=== PATIENT | female | born 1945 | race Hispanic/Latino ===

== ENCOUNTER 2017-12-06 09:05 | Emergency (ER) | payer MEDICARE, OTHER ==
[~2017-12-06] VITALS: Ht 165.1 cm; Wt 86.2 kg
[~2017-12-06 09:05] MED LIST: ALPRAZOLAM0.5 MG PO; BENICAR HCT 201 EACH PO; PANTOPRAZOLE SO40 MG PO; PYLERA CAPSULE1 EACH PO; Z.0.BENICAR40 MG PO; Z.0.XANAX1 MG PO
--- OUTSIDE RECORDS SUMMARY | 2017-12-06 09:09 | XMS REPORT | Clinical Summary ---
Author Author [facility] Organization [facility] Address Unknown Phone Unavailable Care Team Providers Care Procurement Intern Name Role Phone Konstantin Ritchie MD PCP Allergies Active Allergy Reactions Severity Noted Date Comments Codeine 05/16/2017 Iodinated Contrast- Oral 05/16/2017 And Iv Dye Morphine 05/16/2017 Penicillins 05/16/2017 Current Medications Prescription Sig. Disp. Refills Start End Date Status Date metoprolol succinate XL TK ONE T PO QD 2 03/07/20 Active (TOPROL-XL) 25 mg 24 hr 17 tablet amLODIPine (NORVASC) 5 mg TK 1 T PO QD 0 05/08/20 Active tablet 17 ALPRAZolam (XANAX) 0.5 MG TK 1 T PO QHS 0 05/08/20 Active tablet 17 BENICAR 20 mg tablet TK 1 T PO QD 0 03/28/20 Active 17 pantoprazole (PROTONIX) Take 1 tablet (40 mg 30 tablet 3 05/24/20 Active 40 MG EC tablet total) by mouth daily. 17 18 sodium,potassium,mag Take 1 Bottle by mouth 1 Bottle 0 05/16/20 sulfates (SUPREP BOWEL once for 1 dose. 17 17 PREP KIT) 17.5-3.13-1.6 gram recon soln pantoprazole (PROTONIX) Take 1 tablet (40 mg 30 tablet 11 05/22/20 05/24/20 Discontin 40 MG EC tablet total) by mouth daily. 17 17 ued Active Problems Not on file Encounters Date Type Specialty Care Team Description 10/01/2017 Abstract Cardiothoracic Surgery Yonas Enrique MD 05/24/2017 Telephone Gastroenterology Rosanna Berrios MA 05/22/2017 Lab Lab Holland Tavarez MD 05/22/2017 Orders Only Gastroenterology Holland Tavarez MD 05/16/2017 Office Visit Gastroenterology Holland Tavarez MD Gastroesophageal reflux disease, esophagitis presence not specified (Primary Dx);Colon cancer screening after 12/05/2016 Social History Tobacco Use Types Packs/Day Years Used Date Current Every Day Smoker Alcohol Use Drinks/Week oz/Week Comments Defer Sex Assigned at Date Recorded Not on file Last Filed Vital Signs Vital Sign Reading Time Taken Blood Pressure 138/76 05/16/2017 1:14 PM CDT Pulse 71 05/16/2017 1:14 PM CDT Temperature - - Respiratory Rate - - Oxygen Saturation - - Inhaled Oxygen - - Concentration Weight 92.1 kg (203 lb) 05/16/2017 1:14 PM CDT Height 165.1 cm (5' 5") 05/16/2017 1:14 PM CDT Body Mass Index 33.78 05/16/2017 1:14 PM CDT Plan of Treatment Date Type Specialty Care Team Description 12/09/2017 Office Visit Gastroenterology Holland Tavarez MD [address] [place] [address] [phone] Health Maintenance Due Date Last Done Comments COLONOSCOPY 1997 MAMMOGRAM 1997 ZOSTER VACCINE 2007 PNEUMOCOCCAL 2012 POLYSACCHARIDE VACCINE AGE 65 AND OVER PNEUMOCOCCAL-13 2012 INFLUENZA VACCINE 06/04/2017 Results * Surgical pathology request (05/22/2017 11:08 AM) Component Value Ref Range Surgical pathology report See link below for PDF Lab Report Specimen Performing Laboratory [facility] DEPARTMENT OF PATHOLOGY AND GENOMIC MEDICINE [address] [place] [id number] after 12/05/2016 Insurance Payer Benefit Subscriber ID Type Phone Address Plan / Group MEDICARE MEDICARE [id number] Medicare [place], [place] PART A AND B [employer] [place] [place] [place] [id number] [place] [address]
[2017-12-06] MEDS ORDERED: IBUPROFEN 600 MG TAB PO STA (09:33)
[2017-12-06 09:47] LABS: BASOPHILS # (AUTO) 0.1 (0.0-0.1); BASOPHILS % 1.1 % (0.0-1.0); EOSINOPHILS # (AUTO) 0.1 (0.0-0.4); EOSINOPHILS % 2.1 % (0.0-6.0); HEMATOCRIT 41.6 % (34.2-44.1); HEMOGLOBIN 13.7 g/dL (12.0-16.0); LYMPHOCYTES # (AUTO) 1.7 (1.0-3.2); LYMPHOCYTES % 27.5 % (18.0-39.1); MEAN CORPUSCULAR HEMOGLOBIN 29.7 pg (28-32); MEAN CORPUSCULAR HGB CONC 32.9 g/dL (31-35); MEAN CORPUSCULAR VOLUME 90.2 fL (81-99); MONOCYTES # (AUTO) 0.6 (0.2-0.8); MONOCYTES % 8.7 % (4.4-11.3); NEUTROPHILS # (AUTO) 3.8 (2.1-6.9); NEUTROPHILS % 60.3 % (38.7-80.0); PLATELET COUNT 183 x10e3/uL (140-360); RED BLOOD COUNT 4.61 x10e6/uL (3.6-5.1); RED CELL DISTRIBUTION WIDTH 13.6 % (11.7-14.4)
[2017-12-06 09:58] LABS: INR 0.95; PROTHROMBIN TIME 13.1 seconds (11.9-14.5)
[2017-12-06 09:59] LABS: PARTIAL THROMBOPLASTIN TIME 31.5 seconds (23.8-35.5)
[2017-12-06 10:04] LABS: ALANINE AMINOTRANSFERASE 60 IU/L (0-55); ALBUMIN 3.9 g/dL (3.5-5.0); ALBUMIN/GLOBULIN RATIO 0.8 (0.8-2.0); ALKALINE PHOSPHATASE 85 IU/L (40-150); ANION GAP 12.7 mmol/L (8-16); BLOOD UREA NITROGEN 14 mg/dL (7-26); BUN/CREATININE RATIO 16 (6-25); CALCIUM 9.5 mg/dL (8.4-10.2); CARBON DIOXIDE 26 mmol/L (22-29); CHLORIDE 102 mmol/L (98-107); CREATINE KINASE 108 IU/L (29-168); CREATININE, SERUM 0.88 mg/dL (0.57-1.11); EST GLOMERULAR FILTRATION RATE > 60 ML/MIN (60-); GLUCOSE 135 mg/dL (74-118); POTASSIUM 3.7 mmol/L (3.5-5.1); SODIUM 137 mmol/L (136-145)
[2017-12-06 10:10] LABS: TROPONIN I < 0.001 ng/mL (0-0.300)
--- NOTE | 2017-12-06 10:31 | Diagnostic Imaging Report ---
PROCEDURE: A single AP view of the chest. COMPARISON: Chest portable 10/07/2013. INDICATIONS: CHEST PAIN FINDINGS: Lines/tubes: None. Lungs: The lungs are well inflated and clear. There is no evidence of pneumonia or pulmonary edema. Pleura: There is no pleural effusion or pneumothorax. Heart and mediastinum: The heart and the mediastinum are unremarkable. Atherosclerotic calcifications. Bones: No acute bony abnormality. Degenerative changes of the thoracic spine. IMPRESSION: No acute radiographic abnormality. Dictated by: Carmine King M.D. on 12/06/2017 at 10:40 Electronically approved by: Carmine King M.D. on 12/06/2017 at 10:40
[2017-12-06 11:17] VITALS: BP 127/72
== END 2017-12-06 11:33 | disposition home or self-care (01) ==
LOC: ER 09:05
DX: R07.89 Other chest pain (principal); I10 Essential (primary) hypertension; K21.9 Gastro-esophageal reflux disease without esophagitis
CPT/HCPCS: 36415; 71045; 80053; 82550; 82553; 84484; 85025; 85610; 85730; 93005; 99284

== ENCOUNTER 2018-05-26 05:33 | Emergency (ER) | payer MEDICARE, OTHER ==
[~2018-05-26] VITALS: Ht 165.1 cm; Wt 86.2 kg
[2018-05-26] MEDS ORDERED: ALBUTEROL SULF 0.083% NEB SOLN 3 ML NEB NEB STA (05:57)
[2018-05-26] MEDS ORDERED: PREDNISONE 20 MG TAB PO STA (05:57)
[2018-05-26] MEDS ORDERED: IPRATROPIUM BROMIDE 0.02% 2.5 ML NEB NEB STA (05:57)
[2018-05-26] MEDS ORDERED: ASPIRIN 81 MG CHEW TAB PO ONE (06:00)
[2018-05-26] MEDS ORDERED: ACETAMINOPHEN/CODEINE 300MG - 30MG TAB PO ONE (06:00)
[2018-05-26 06:28] LABS: BASOPHILS # (AUTO) 0.1 (0.0-0.1); BASOPHILS % 1.3 % (0.0-1.0); EOSINOPHILS # (AUTO) 0.1 (0.0-0.4); EOSINOPHILS % 2.5 % (0.0-6.0); HEMATOCRIT 37.8 % (34.2-44.1); HEMOGLOBIN 12.9 g/dL (12.0-16.0); LYMPHOCYTES # (AUTO) 1.6 (1.0-3.2); LYMPHOCYTES % 29.3 % (18.0-39.1); MEAN CORPUSCULAR HEMOGLOBIN 30.2 pg (28-32); MEAN CORPUSCULAR HGB CONC 34.1 g/dL (31-35); MEAN CORPUSCULAR VOLUME 88.5 fL (81-99); MONOCYTES # (AUTO) 0.4 (0.2-0.8); MONOCYTES % 7.1 % (4.4-11.3); NEUTROPHILS # (AUTO) 3.3 (2.1-6.9); NEUTROPHILS % 59.6 % (38.7-80.0); PLATELET COUNT 162 x10e3/uL (140-360); RED BLOOD COUNT 4.27 x10e6/uL (3.6-5.1); RED CELL DISTRIBUTION WIDTH 13.6 % (11.7-14.4)
[2018-05-26 06:47] LABS: CLARITY,URINE CLEAR (CLEAR); COLOR,URINE YELLOW (YELLOW)
[2018-05-26 06:48] LABS: BILIRUBIN,URINE NEGATIVE (NEGATIVE); KETONES,URINE NEGATIVE (NEGATIVE); LEUKOCYTE ESTERASE ,URINE NEGATIVE (NEGATIVE); NITRITE,URINE NEGATIVE (NEGATIVE); PROTEIN,URINE DIPSTICK NEGATIVE (NEGATIVE); URINE UROBILINOGEN 0.2 mg/dL (0.2 - 1)
[2018-05-26 06:50] LABS: ALANINE AMINOTRANSFERASE 56 IU/L (0-55); ALBUMIN 3.6 g/dL (3.5-5.0); ALBUMIN/GLOBULIN RATIO 0.9 (0.8-2.0); ALKALINE PHOSPHATASE 76 IU/L (40-150); ANION GAP 12.2 mmol/L (8-16); BLOOD UREA NITROGEN 14 mg/dL (7-26); BUN/CREATININE RATIO 16 (6-25); CALCIUM 9.2 mg/dL (8.4-10.2); CARBON DIOXIDE 25 mmol/L (22-29); CHLORIDE 104 mmol/L (98-107); CREATINE KINASE 100 IU/L (29-168); CREATININE, SERUM 0.86 mg/dL (0.57-1.11); EST GLOMERULAR FILTRATION RATE > 60 ML/MIN (60-); GLUCOSE 159 mg/dL (74-118); POTASSIUM 4.2 mmol/L (3.5-5.1); SODIUM 137 mmol/L (136-145)
[2018-05-26] MEDS ORDERED: TYLENOL WITH C1 EACH PO (06:56)
[2018-05-26] MEDS ORDERED: PREDNISONE20 MG PO (06:56)
[2018-05-26] MEDS ORDERED: ZITHROMAX250 MG PO (06:58)
[2018-05-26 07:00] LABS: WBC,URINE (MAN) 0-5 /HPF (0-5)
[2018-05-26 07:01] LABS: BACTERIA,URINE MODERATE /HPF; EPITHELIAL CELLS,URINE MODERATE /LPF
--- NOTE | 2018-05-26 07:04 | Diagnostic Imaging Report ---
EXAMINATION: CHEST SINGLE (PORTABLE) INDICATION: Chest pain, fever COMPARISON: 12/06/2017 FINDINGS: TUBES and LINES: None. LUNGS: Lungs are not well inflated. Lungs are clear. There is mild prominence of the central pulmonary vasculature, consistent with pulmonary venous congestion. PLEURA: No pleural effusion or pneumothorax. HEART AND MEDIASTINUM: Cardiac size is mildly enlarged. There are atherosclerotic calcifications within the aorta. BONES AND SOFT TISSUES: No acute osseous lesion. Soft tissues are unremarkable. UPPER ABDOMEN: No free air under the diaphragm. IMPRESSION: No acute thoracic abnormality. Mild enlargement of the cardiac silhouette without decompensation. Signed by: Dr. Curtis Bower M.D. on 05/26/2018 7:01 AM
[2018-05-26] MEDS ORDERED: ACETAMINOPHEN 325 MG TAB PO ONE (07:15)
[2018-05-26] MEDS ORDERED: AZITHROMYCIN 250 MG TAB PO ONE (07:15)
[2018-05-26 07:17] VITALS: BP 147/96
[2018-05-26] MEDS ORDERED: ACETAMINOPHEN 325 MG TAB ONE (07:32)
[2018-05-26] MEDS ORDERED: AZITHROMYCIN 250 MG TAB ONE (07:32)
== END 2018-05-26 07:44 | disposition home or self-care (01) ==
LOC: ER 05:33
DX: R50.9 Fever, unspecified (principal); R05 Cough; R07.89 Other chest pain; J44.1 Chronic obstructive pulmonary disease with (acute) exacerbation; F17.210 Nicotine dependence, cigarettes, uncomplicated
CPT/HCPCS: 36415; 71045; 80053; 81001; 82550; 82553; 83880; 84484; 85025; 93005; 94640; 99284

== ENCOUNTER 2018-12-28 09:22 | Emergency (ER) | payer MEDICARE, OTHER ==
[~2018-12-28] VITALS: Ht 165.1 cm; Wt 86.2 kg
[~2018-12-28 09:22] MED LIST changes: +PREDNISONE20 MG PO; +TYLENOL WITH C1 EACH PO; +ZITHROMAX250 MG PO
--- OUTSIDE RECORDS SUMMARY | 2018-12-28 09:25 | XMS REPORT | Clinical Summary ---
Author Author [facility] Organization [facility] Address Unknown Phone Unavailable Care Team Providers Care Railroad Track Mechanic Name Role Phone Sedrick Ritchie MD PCP Allergies Comments Active Allergy Reactions Severity Noted Date Codeine 05/16/2017 Patient states she can tolerate oral iodine Iodinated Contrast- Oral 05/16/2017 And Iv Dye Morphine 05/16/2017 Penicillins 05/16/2017 Medications End Date Status Medication Sig Dispensed Refills Start Date Active metoprolol succinate XL TK ONE T PO 2 (TOPROL-XL) 25 mg 24 hr QD 7 tablet Active amLODIPine (NORVASC) 5 mg TK 1 T PO QD 0 tablet 7 Active ALPRAZolam (XANAX) 0.5 MG TK 1 T PO QHS 0 tablet 7 Active olmesartan-hydrochlorothi Take 1 tablet 0 azide (BENICAR HCT) 40-25 by mouth. mg per tablet Active lactobacillus comb no.10 Take by 0 (PROBIOTIC) 20 billion mouth. cell capsule Active PANCREAT/BETAINE/PEPSIN/B Take by 0 REGGIE (SUPER ENZYME ORAL) mouth. Active SYMBICORT 80-4.5 0 mcg/actuation inhaler 8 Active pantoprazole (PROTONIX) TAKE 1 90 tablet 0 40 MG EC tablet TABLET(40 MG) 9 BY MOUTH DAILY 01/21/2018 Discontinued BENICAR 20 mg tablet TK 1 T PO QD 0 7 05/24/2018 pantoprazole (PROTONIX) Take 1 tablet 30 tablet 3 40 MG EC tablet (40 mg total) 7 by mouth daily. 11/07/2018 Discontinued pantoprazole (PROTONIX) TAKE 1 30 tablet 0 40 MG EC tablet TABLET(40 MG) 9 BY MOUTH DAILY Active Problems Problem Noted Date Scoliosis due to degenerative disease of spine in adult patient 03/10/2018 Encounters Care Team Description Date Type Specialty Holland Tavarez MD 11/07/2018 Refill Gastroenterology Holland Tavarez MD 11/07/2018 Refill Gastroenterology Chito Prince MD Scoliosis of thoracolumbar spine, unspecified scoliosis type 03/12/2018 Hospital Radiology Encounter Chito Prince MD Scoliosis of thoracolumbar spine, unspecified scoliosis type 03/12/2018 Hospital Radiology Encounter Chito Prince MD Scoliosis of thoracolumbar spine, unspecified scoliosis type 03/12/2018 Hospital Radiology Encounter Chito Prince MD Scoliosis due to degenerative disease of spine in adult patient (Primary Dx) 03/05/2018 Office Visit Neurosurgery MoniqueAliza Ramírez MA Scoliosis of thoracolumbar spine, unspecified scoliosis type (Primary Dx) 03/05/2018 Transcribe Neurosurgery Orders Holland Tavarez MD 02/14/2018 Telephone Gastroenterology Yonas Enrique MD Hernia, hiatal (Primary Dx) 02/04/2018 Office Visit Cardiothoracic Surgery Yonas Enrique MD Abdominal pain, unspecified abdominal location 01/30/2018 Hospital Radiology Encounter Yonas Enrique MD Abdominal pain, unspecified abdominal location (Primary Dx) 01/22/2018 Transcribe Cardiothoracic Surgery Orders Yonas Enrique MD Weakness of both lower extremities (Primary Dx); Abdominal pain, unspecified abdominal location 01/21/2018 Office Visit Cardiothoracic Surgery Rosanna Berrios MA 01/01/2018 Telephone Gastroenterology Holland Tavarez MD 12/27/2017 Lab Lab after 12/27/2017 Social History Date Tobacco Use Types Packs/Day Years Used Current Every Day Smoker Smokeless Tobacco: Never Used Tobacco Cessation: Counseling Given: Yes Alcohol Use Drinks/Week oz/Week Comments Defer Sex Assigned at Date Recorded Not on file Industry Job Start Date Occupation Not on file Not on file Not on file Travel End Travel History Travel Start No recent travel history available. Last Filed Vital Signs Time Taken Vital Sign Reading 02/04/2018 9:25 AM CDT Blood Pressure 138/87 02/04/2018 9:25 AM CDT Pulse 68 02/04/2018 9:25 AM CDT Temperature 36.6 C (97.9 F) 02/04/2018 9:25 AM CDT Respiratory Rate 16 02/04/2018 9:25 AM CDT Oxygen Saturation 99% - Inhaled Oxygen - Concentration 03/03/2018 6:49 PM CDT Weight 90.3 kg (199 lb) 03/03/2018 6:49 PM CDT Height 165.1 cm (5' 5") 03/03/2018 6:49 PM CDT Body Mass Index 33.12 Plan of Treatment Health Maintenance Due Date Last Done Comments BREAST CANCER SCREENING 1997 COLON CANCER SCREENING 1997 SHINGLES VACCINES (#1) 1997 65+ PNEUMOCOCCAL VACCINE 2012 (1 of 2 - PCV13) PNEUMOCOCCAL 2012 POLYSACCHARIDE VACCINE AGE 65 AND OVER INFLUENZA VACCINE 06/04/2018 Procedures Comments Procedure Name Priority Date/Time Associated Diagnosis XR THORACIC SPINE Routine 03/12/2018 Scoliosis of COMPLETE 4+ VW 1:14 PM CDT thoracolumbar spine, unspecified scoliosis type XR LUMBAR SPINE AP Routine 03/12/2018 Scoliosis of LATERAL FLEXION AND 1:13 PM CDT thoracolumbar spine, EXTENSION unspecified scoliosis type XR SPINE SCOLIOSIS 2-3 Routine 03/12/2018 Scoliosis of VIEWS 1:13 PM CDT thoracolumbar spine, unspecified scoliosis type NM GASTRIC EMPTYING Routine 01/30/2018 Abdominal pain, 12:38 PM CDT unspecified abdominal location SURGICAL PATHOLOGY Routine 12/27/2017 REQUEST 10:41 AM HEAD PIECE ASSEMBLER after 12/27/2017 Results * XR Thoracic Spine Complete 4+ Vw (03/12/2018 1:14 PM CDT) Narrative Performed At EXAMINATION:XR THORACIC SPINE COMPLETE 4VW [facility] CLINICAL HISTORY:M41.9 Scoliosisunspecified, SCOLIOSIS COMPARISON:None. IMPRESSION: There is a scoliosis to the left centered at T11-12. There is generalized disc space narrowing throughout the thoracic spine most prominent at T8-9 through T12-L1. There is diminished bending towards the left lung compared to the right. There is no gross compression fracture. [facility]-[id number] Procedure Note Interface, Radiology Results Incoming - 03/12/2018 1:52 PM CDT EXAMINATION: XR THORACIC SPINE COMPLETE 4 VW CLINICAL HISTORY: M41.9 Scoliosis unspecified, SCOLIOSIS COMPARISON: None. IMPRESSION: There is a scoliosis to the left centered at T11-12. There is generalized disc space narrowing throughout the thoracic spine most prominent at T8-9 through T12-L1. There is diminished bending towards the left lung compared to the right. There is no gross compression fracture. [id number] Performing Organization Address City/State/Zipcode Phone Number [facility] [address] [place] [address] * XR Lumbar Spine Ap Lateral Flexion And Extension (03/12/2018 1:13 PM CDT) Narrative Performed At EXAMINATION: XR LUMBAR SPINE AP LATERALFLEXION AND EXTENSION [facility] CLINICAL H[facility]: M41.9 Scoliosisunspecified, SCOLIOSIS COMPARISON:None IMPRESSION: 6 radiographs of the lumbar spine are submitted. 5 nonrib-bearing lumbar-type vertebral bodies are identified. On the frontal projection, there is right convex curvature of the lower lumbar spine and left convex curvature of the upper lumbar and lower thoracic spine. The most caudal functional appearing disc space is designated L5-S1. There appears to be bony fusion of the L1-L4 vertebral bodies across the disc spaces. Bone density appears decreased. There is severe disc space narrowing at L4-L5, with sclerosis along the endplates. Multilevel spondylotic changes of the lumbar spine are noted, with prominent marginal osteophytes at L3-L4. No significant spondylolisthesis is identified on the neutral position. With flexion, there is induced spondylolisthesis at L4-L5, measuring approximately 8 mm. There is mild age-indeterminate anterior wedge compression deformity of the T12 vertebral body. Surgical clips are seen in the upper abdomen bilaterally. On the frontal radiographs, there is a cylindrical-shaped density projecting over the liver, which could represent a radiopaque pill. [id number] Procedure Note Interface, Radiology Results Incoming - 03/12/2018 1:50 PM CDT EXAMINATION: XR LUMBAR SPINE AP LATERAL FLEXION AND EXTENSION CLINICAL HISTORY: M41.9 Scoliosis unspecified, SCOLIOSIS COMPARISON: None IMPRESSION: 6 radiographs of the lumbar spine are submitted. 5 nonrib-bearing lumbar-type vertebral bodies are identified. On the frontal projection, there is right convex curvature of the lower lumbar spine and left convex curvature of the upper lumbar and lower thoracic spine. The most caudal functional appearing disc space is designated L5-S1. There appears to be bony fusion of the L1-L4 vertebral bodies across the disc spaces. Bone density appears decreased. There is severe disc space narrowing at L4-L5, with sclerosis along the endplates. Multilevel spondylotic changes of the lumbar spine are noted, with prominent marginal osteophytes at L3-L4. No significant spondylolisthesis is identified on the neutral position. With flexion, there is induced spondylolisthesis at L4-L5, measuring approximately 8 mm. There is mild age-indeterminate anterior wedge compression deformity of the T12 vertebral body. Surgical clips are seen in the upper abdomen bilaterally. On the frontal radiographs, there is a cylindrical-shaped density projecting over the liver, which could represent a radiopaque pill. [id number] Performing Organization Address City/State/Zipcode Phone Number [facility] [address] [place] [address] * XR Spine Scoliosos 2-3 Views (03/12/2018 1:13 PM CDT) Narrative Performed At EXAMINATION:XR SPINE SCOLIOSIS 2-3 VIEWS [facility] CLINICAL HISTORY:M41.9 Scoliosisunspecified, SCOLIOSIS COMPARISON:None. Frontal and lateral views of entire spine was performed. IMPRESSION: There is severe 45 degrees leftward curvature at T12. There is 0 coronal balance. The left femoral head is 5 mm more inferior than the right femoral head. Sagittal imaging shows diffuse multilevel spondylosis and diffuse osteopenia. There is grade 1 anterolisthesis of L4. There is slight exaggeration of thoracic kyphosis. There is 9.5 cm positive sagittal balance. Aorta is tortuous. Heart size is upper normal. Lungs are clear. Bowel gas pattern is nonobstructive. [facility]-[id number] Procedure Note Hm Interface, Radiology Results Incoming - 03/12/2018 4:33 PM CDT EXAMINATION: XR SPINE SCOLIOSIS 2-3 VIEWS CLINICAL HISTORY: M41.9 Scoliosis unspecified, SCOLIOSIS COMPARISON: None. Frontal and lateral views of entire spine was performed. IMPRESSION: There is severe 45 degrees leftward curvature at T12. There is 0 coronal balance. The left femoral head is 5 mm more inferior than the right femoral head. Sagittal imaging shows diffuse multilevel spondylosis and diffuse osteopenia. There is grade 1 anterolisthesis of L4. There is slight exaggeration of thoracic kyphosis. There is 9.5 cm positive sagittal balance. Aorta is tortuous. Heart size is upper normal. Lungs are clear. Bowel gas pattern is nonobstructive. [facility]-[id number] Performing Organization Address City/[facility] Phone Number [facility] [address] [place] [address] * NM Gastric Emptying (01/30/2018 12:38 PM CDT) Narrative Performed At PROCEDURE:NM GASTRIC EMPTYING [facility] INDICATION:Abdominal pain. TECHNIQUE: 0.5 mCi of Tc-99m sulfur colloid was mixed with an egg and cooked.The egg was fed to the patient and dynamic planar images of the abdomen were acquired for 90 minutes.Delayed images were obtained at 4 hours. FINDINGS:The 90 minute gastric emptying rate is normal.The half-time of emptying is 65 minutes.Normal range is between 45 and 100 minutes.4 hour images demonstrate complete gastric emptying. IMPRESSION: 1.Normal gastric emptying rate. [facility]-[id number] Procedure Note [facility], Radiology Results Incoming - 01/30/2018 2:41 PM CDT PROCEDURE: NM GASTRIC EMPTYING INDICATION: Abdominal pain. TECHNIQUE: 0.5 mCi of Tc-99m sulfur colloid was mixed with an egg and cooked. The egg was fed to the patient and dynamic planar images of the abdomen were acquired for 90 minutes. Delayed images were obtained at 4 hours. FINDINGS: The 90 minute gastric emptying rate is normal. The half-time of emptying is 65 minutes. Normal range is between 45 and 100 minutes. 4 hour images demonstrate complete gastric emptying. IMPRESSION: 1. Normal gastric emptying rate. [facility]-[id number] Performing Organization Address [facility] Phone Number [facility] [address] [place] [address] * Surgical pathology request (12/27/2017 10:41 AM HEAD PIECE ASSEMBLER) [facility] DEPARTMENT OF PATHOLOGY AND GENOMIC MEDICINE Surgical pathology report See link below for PDF Lab [facility] DEPARTMENT OF Report PATHOLOGY AND GENOMIC MEDICINE Result status This is Final Report to [facility] DEPARTMENT OF [id number] PATHOLOGY AND GENOMIC MEDICINE Performing Organization Address [facility] Cent[facility] Phone Number [facility] DEPARTMENT OF [address] [place] [id number] PATHOLOGY AND GENOMIC MEDICINE after 12/27/2017 Insurance Payer Benefit Subscriber ID Type Phone Address Plan / Group MEDICARE MEDICARE xxxxxxxxxx Medicare [place], [place] PART A AND B [employer] ANN [employer] OF xxxxxx-xx Commercial ANN Advance Directives Patient has advance care planning documents on file. For more information, sarkis lynch contact: Rivera Cade [address] [place] [address]
--- OUTSIDE RECORDS SUMMARY | 2018-12-28 09:26 | XMS REPORT ---
Author Author Fortino [facility]ie Organization [employer] Address Unknown Phone Unavailable Care Team Providers Care Resp Ther Name Role Phone Fortino Ritchie CP Unavailable Allergies No Known Allergies Problems Problem Type Condition Code Onset Dates Condition Status Problem Vitamin D deficiency, unspecified E55.9 Active Problem Declined smoking cessation Z72.0 Active Problem Age related osteoporosis M81.0 Active Problem Left knee pain M25.562 Active Problem Sciatica of left side M54.32 Active Problem Encounter for long-term (current) use of other medications Z79.899 Active Problem Lumbago with sciatica, unspecified side M54.40 Active Problem Polyarthralgia M25.50 Active Problem Low back pain M54.5 Active Problem Sciatica, right side M54.31 Active Medications No Known Medications Results No Known Results Summary Purpose [employer] Submission
--- OUTSIDE RECORDS SUMMARY | 2018-12-28 09:26 | XMS REPORT ---
Author Author Fortino Ritchie Organization [employer] Address Unknown Phone Unavailable Care Team Providers Care Machinist 2Nd Shift Name Role Phone Fortino Ritchie CP Unavailable [...]
--- OUTSIDE RECORDS SUMMARY | 2018-12-28 09:26 | XMS REPORT | Continuity of Care Document ---
Author Author [facility] Interface Address Unknown Phone Unavailable Problems Problem Status Onset Date Classification Date Reported Comments Source Vitamin D deficiency, unspecified Active Problem 07/24/2018 Haider Ritchie Declined smoking cessation Active Problem 07/24/2018 Haider Ritchie Age related osteoporosis Active Problem 07/24/2018 Ha[facility] Ritchie Left knee pain Active Problem 07/24/2018 [facility] Ritchie Sciatica of left side Active Problem 07/24/2018 Ha[facility] Ritchie Encounter for long-term use of other medications Active Problem 07/24/2018 [facility] Ritchie Lumbago with sciatica, unspecified side Active Problem 07/24/2018 Ha[facility] Ritchie Polyarthralgia Active Problem 07/24/2018 Ha[facility] Ritchie Low back pain Active Problem 07/24/2018 Ha[facility] Ritchie Sciatica, right side Active Problem 07/24/2018 Ha[facility] Ritchie Medications Medication Details Route Status Patient Instructions Ordering Provider Order Date Source Prolia as directed Subcutaneous Active 60 MG/ML Subcutaneous every 6 months Ritchie 07/14/2018 Ha[facility] Ritchie Acetaminophen With Codeine (Tylenol With Codeine #3 Tablet) 1 Each Tablet Every 6 Hours as needed for Cough Active Kei 05/26/2018 [facility] Azithromycin (Zithromax) 250 Mg Tablet Daily Active Kei 05/26/2018 [facility] Prednisone 20 Mg Tab Daily Active Kei 05/26/2018 [facility] Vitamin D (Ergocalciferol) 1 capsule Orally Active 11655 UNIT Orally once a week Ritchie 12/27/2016 [facility] Ritchie Alprazolam (Xanax) 1 Mg Tablet, 1 Mg Oral Bedtime Active 07/11/2016 [facility] Bismuth/Metronid/Tetracycline (Pylera Capsule) 1 Each Capsule, 3 Cap Oral Four Times Daily Active 07/11/2016 [facility] Pantoprazole Sodium (Protonix) 40 Mg Tablet.dr, 40 Mg Oral Twice A Day Active 07/11/2016 [facility] Olmesartan Medoxomil (Benicar) 40 Mg Tablet, 40 Mg Oral Daily Active 11/17/2013 [facility] Pantoprazole Sodium (Protonix) 40 Mg Tablet., 40 Mg Oral Daily Active 11/17/2013 [facility] Benicar 1 tablet Orally Active 20 MG Orally once a day [place] Haider Ritchie Alprazolam 1 tablet Orally Active 0.5 MG Orally once at night Ritchie Haider Ritchie Metoprolol Tartrate 1 tablet with food Orally Active 25 MG Orally Twice a day Erma Ritchie Prolia as directed Subcutaneous Active 60 MG/ML Subcutaneous every 6 months Erma Ritchie Vitamin D (Ergocalciferol) 1 capsule Orally Active 03759 UNIT Orally once a week Ritchie Haider Ritchie Fluoxetine 1 capsule Orally Active 20 MG Orally Once a day [place] Haider Ritchie Alprazolam 0.5 Mg Tablet Bedtime Active [facility] Olmesartan/Hydrochlorothiazide (Benicar Hct 20-12.5 Mg Tablet) 1 Each Tablet Daily Active [facility] Allergies, Adverse Reactions, Alerts Substance Category Reaction Severity Reaction type Status Date Reported Comments Source Penicillin Severe Allergy to Substance Active 11/17/2013 [facility] Morphine Intermediate Allergy to Substance Active 11/17/2013 [facility] Codeine Intermediate Allergy to Substance Active 11/17/2013 [facility] Iodinated Contrast- Oral and IV Dye Severe Allergy to Substance Active 12/06/2017 [facility] penicillin Adverse Reaction chest pain Adverse Reaction Active 07/14/2018 [facility] Ritchie Morphine Sulfate Adverse Reaction hallucinations Adverse Reaction Active 07/14/2018 Haider Ritchie Iodine Adverse Reaction coma Adverse Reaction Active 07/14/2018 [facility] Ritchie Codeine Sulfate Adverse Reaction hallucinations Adverse Reaction Active 07/14/2018 Ha[facility] Ritchie Immunizations Immunization Date Given Site Status Last Updated Comments Source Results Order Name Results Value Reference Range Date Interpretation Comments Source Automated urine sediment leukocyte count by microscopy (number/high power field) Automated urine sediment leukocyte count by microscopy (number/high power field) null 0 - 5 05/26/2018 [facility] Bacteria detection in urine sediment by light microscopy Bacteria detection in urine sediment by light microscopy MODERATE NONE 05/26/2018 [facility] Epithelial cells detection in urine sediment by light microscopy Epithelial cells detection in urine sediment by light microscopy MODERATE NONE 05/26/2018 [facility] Erythrocytes detection in urine sediment by light microscopy Erythrocytes detection in urine sediment by light microscopy NONE 0 - 5 05/26/2018 [facility] Specific gravity of Urine by Test strip Specific gravity of Urine by Test strip 1.015 1.010 - 1.025 05/26/2018 [facility] Urine clarity Urine clarity CLEAR CLEAR 05/26/2018 [facility] Urine color determination Urine color determination YELLOW YELLOW 05/26/2018 [facility] Urine erythrocytes detection Urine erythrocytes detection NEGATIVE NEGATIVE 05/26/2018 [facility] Urine glucose detection Urine glucose detection NEGATIVE NEGATIVE 05/26/2018 [facility] Urine ketones detection by automated test strip Urine ketones detection by automated test strip NEGATIVE NEGATIVE 05/26/2018 [facility] Urine leukocyte esterase detection by dipstick Urine leukocyte esterase detection by dipstick NEGATIVE NEGATIVE 05/26/2018 [facility] Urine nitrite detection Urine nitrite detection NEGATIVE NEGATIVE 05/26/2018 [facility] Urine pH measurement by automated test strip Urine pH measurement by automated test strip 8 5 - 7 05/26/2018 [facility] Urine protein measurement by test strip (mass/volume) Urine protein measurement by test strip (mass/volume) NEGATIVE NEGATIVE 05/26/2018 [facility] Urine total bilirubin measurement (mass/volume) Urine total bilirubin measurement (mass/volume) NEGATIVE NEGATIVE 05/26/2018 [facility] Urine urobilinogen measurement by test strip (mass/volume) Urine urobilinogen measurement by test strip (mass/volume) 0.2 0.2 - 1 05/26/2018 [facility] Automated blood basophil count (count/volume) Automated blood basophil count (count/volume) 0.1 0.0 - 0.1 05/26/2018 [facility] Automated blood basophil count as percentage of total leukocytes Automated blood basophil count as percentage of total leukocytes 1.3 0.0 - 1.0 05/26/2018 [facility] Automated blood eosinophil count Automated blood eosinophil count 0.1 0.0 - 0.4 05/26/2018 [facility] Automated blood eosinophil count as percentage of total leukocytes Automated blood eosinophil count as percentage of total leukocytes 2.5 0.0 - 6.0 05/26/2018 [facility] Automated blood hematocrit (volume fraction) Automated blood hematocrit (volume fraction) 37.8 34.2 - 44.1 05/26/2018 [facility] Automated blood lymphocyte count as percentage ot total leukocytes Automated blood lymphocyte count as percentage ot total leukocytes 29.3 18.0 - 39.1 05/26/2018 [facility] Automated blood monocyte count as percentage of total leukocytes Automated blood monocyte count as percentage of total leukocytes 7.1 4.4 - 11.3 05/26/2018 [facility] Automated blood neutrophil count Automated blood neutrophil count 3.3 2.1 - 6.9 05/26/2018 [facility] Automated blood platelet count (count/volume) Automated blood platelet count (count/volume) 162 140 - 360 05/26/2018 [facility] Automated blood segmented neutrophil count as percentage of total leukocytes Automated blood segmented neutrophil count as percentage of total leukocytes 59.6 38.7 - 80.0 05/26/2018 [facility] Automated erythrocyte mean corpuscular hemoglobin (mass per erythrocyte) Automated erythrocyte mean corpuscular hemoglobin (mass per erythrocyte) 30.2 28 - 32 05/26/2018 [facility] Automated erythrocyte mean corpuscular hemoglobin concentration measurement (mass/volume) Automated erythrocyte mean corpuscular hemoglobin concentration measurement (mass/volume) 34.1 31 - 35 05/26/2018 [facility] Automated erythrocyte mean corpuscular volume Automated erythrocyte mean corpuscular volume 88.5 81 - 99 05/26/2018 [facility] Blood erythrocytes automated count (number/volume) Blood erythrocytes automated count (number/volume) 4.27 3.6 - 5.1 05/26/2018 [facility] Blood hemoglobin measurement (moles/volume) Blood hemoglobin measurement (moles/volume) 12.9 12.0 - 16.0 05/26/2018 [facility] Blood leukocytes automated count (number/volume) Blood leukocytes automated count (number/volume) 5.50 4.8 - 10.8 05/26/2018 [facility] Blood lymphocytes count (number/volume) Blood lymphocytes count (number/volume) 1.6 1.0 - 3.2 05/26/2018 [facility] Blood monocytes automated count (number/volume) Blood monocytes automated count (number/volume) 0.4 0.2 - 0.8 05/26/2018 [facility] Estimated glomerular filtration rate (GFR) determination Estimated glomerular filtration rate (GFR) determination null 60 05/26/2018 [facility] Glucose measurement Glucose measurement 159 74 - 118 05/26/2018 [facility] Plasma globulin measurement (mass/volume) Plasma globulin measurement (mass/volume) 3.9 2.3 - 3.5 05/26/2018 [facility] Serum or plasma alanine aminotransferase measurement (enzymatic activity/volume) Serum or plasma alanine aminotransferase measurement (enzymatic activity/volume) 56 0 - 55 05/26/2018 [facility] Serum or plasma albumin measurement (mass/volume) Serum or plasma albumin measurement (mass/volume) 3.6 3.5 - 5.0 05/26/2018 [facility] Serum or plasma albumin/globulin mass ratio Serum or plasma albumin/globulin mass ratio 0.9 0.8 - 2.0 05/26/2018 [facility] Serum or plasma alkaline phosphatase measurement (enzymatic activity/volume) Serum or plasma alkaline phosphatase measurement (enzymatic activity/volume) 76 40 - 150 05/26/2018 [facility] Serum or plasma anion gap Serum or plasma anion gap 12.2 8 - 16 05/26/2018 [facility] Serum or plasma calcium measurement (mass/volume) Serum or plasma calcium measurement (mass/volume) 9.2 8.4 - 10.2 05/26/2018 [facility] Serum or plasma carbon dioxide, total measurement (moles/volume) Serum or plasma carbon dioxide, total measurement (moles/volume) 25 22 - 29 05/26/2018 [facility] Serum or plasma chloride measurement (moles/volume) Serum or plasma chloride measurement (moles/volume) 104 98 - 107 05/26/2018 [facility] Serum or plasma creatine kinase MB measurement (mass/volume) Serum or plasma creatine kinase MB measurement (mass/volume) 2.30 0 - 5.0 05/26/2018 [facility] Serum or plasma creatine kinase measurement (enzymatic activity/volume) Serum or plasma creatine kinase measurement (enzymatic activity/volume) 100 29 - 168 05/26/2018 [facility] Serum or plasma creatinine measurement (mass/volume) Serum or plasma creatinine measurement (mass/volume) 0.86 0.57 - 1.11 05/26/2018 [facility] Serum or plasma potassium measurement (moles/volume) Serum or plasma potassium measurement (moles/volume) 4.2 3.5 - 5.1 05/26/2018 [facility] Serum or plasma protein measurement (mass/volume) Serum or plasma protein measurement (mass/volume) 7.5 6.5 - 8.1 05/26/2018 [facility] Serum or plasma sodium measurement (moles/volume) Serum or plasma sodium measurement (moles/volume) 137 136 - 145 05/26/2018 [facility] Serum or plasma total bilirubin measurement (mass/volume) Serum or plasma total bilirubin measurement (mass/volume) 0.5 0.2 - 1.2 05/26/2018 [facility] Serum or plasma urea nitrogen measurement (mass/volume) Serum or plasma urea nitrogen measurement (mass/volume) 14 7 - 26 05/26/2018 [facility] Serum or plasma urea nitrogen/creatinine mass ratio Serum or plasma urea nitrogen/creatinine mass ratio 16 6 - 25 05/26/2018 [facility] Troponin I measurement by highly sensitive enzyme immunoassay Troponin I measurement by highly sensitive enzyme immunoassay 0.001 0 - 0.300 05/26/2018 [facility] Red Cell Distribution Width 13.6 11.7 - 14.4 05/26/2018 [facility] IM GRANULOCYTES % 0.2 0.0 - 1.0 05/26/2018 [facility] Absolute Immature Granulocyte (auto 0.01 0 - 0.1 05/26/2018 [facility] Aspartate Amino Transf (AST/SGOT) 62 5 - 34 05/26/2018 [facility] B-Type Natriuretic Peptide 41.7 0 - 100 05/26/2018 [facility] Activated partial thromboplastin time (aPTT) in platelet poor plasma bycoagulation assay Activated partial thromboplastin time (aPTT) in platelet poor plasma bycoagulation assay 31.5 23.8 - 35.5 12/06/2017 [facility] INR in Platelet poor plasma by Coagulation assay INR in Platelet poor plasma by Coagulation assay 0.95 12/06/2017 [facility] Prothrombin time (PT) in platelet poor plasma by coagulation assay Prothrombin time (PT) in platelet poor plasma by coagulation assay 13.1 11.9 - 14.5 12/06/2017 [facility] Vital Signs Vital Sign Value Date Comments Source Weight 200.3 07/14/2018 [facility] Ritchie Height 60 07/14/2018 [facility] Ritchie Temperature Oral (F) 98.4 F 07/14/2018 [facility] Ritchie Heart Rate 100 07/14/2018 [facility] Ritchie Diastolic (mm Hg) 72 07/14/2018 [facility] Ritchie Systolic (mm Hg) 150 07/14/2018 [facility] Rizoer Weight 199 01/10/2018 [facility] Rizoer Height 60 01/10/2018 [facility] Ritchie Temperature Oral (F) 97.9 F 01/10/2018 [facility] Ritchie Heart Rate 64 01/10/2018 [facility] Ritchie Diastolic (mm Hg) 70 01/10/2018 [facility] Ritchie Systolic (mm Hg) 122 01/10/2018 [facility] Ritchie Encounters Location Location Details Encounter Type Encounter Number Reason For Visit Attending Provider ADM Date DC Date Status Source Departed Emergency Room [id number] NENITA MENARD MD 12/06/2017 12/06/2017 [facility] Departed Emergency Room [id number] TOMÁS LEONARD MD 05/26/2018 05/26/2018 [facility] Procedures Procedure Code Date Perfomer Comments Source
--- OUTSIDE RECORDS SUMMARY | 2018-12-28 09:26 | XMS REPORT ---
Author Author Fortino Ritchie Organization [employer] Address Unknown Phone Unavailable Care Team Providers Care Provider Relations Advocate Name Role Phone Fortino Ritchie CP Unavailable [...]
--- OUTSIDE RECORDS SUMMARY | 2018-12-28 09:26 | XMS REPORT ---
Author Author Fortino Ritchie Organization [employer] Address Unknown Phone Unavailable Care Team Providers Care Programmer Numerical Control Name Role Phone Fortino Ritchie CP Unavailable Allergies, Adverse Reactions, Alerts Substance Reaction Event Type penicillin chest pain Drug Allergy Morphine Sulfate hallucinations Drug Allergy Iodine coma Drug Allergy Codeine Sulfate hallucinations Drug Allergy Problems Problem Type Condition Code Onset Dates [...] Active Problem Sciatica, right side M54.31 Active Assessment Encounter for long-term (current) use of other medications Z79.899 Active Assessment Low back pain M54.5 Active Assessment Age related osteoporosis M81.0 Active Medications Medication Code System Code Instructions Start Date End Date Status Dosage Prolia [facility] 48227313162 60 MG/ML Subcutaneous every 6 months Jul 14, 2018 Inactive as directed Alprazolam ND 06725462702 0.5 MG Orally once at night Active 1 tablet Vitamin D (Ergocalciferol) [facility] 87885844594 39767 UNIT Orally once a week Active 1 capsule Benicar ND 67527267559 20 MG Orally once a day Active 1 tablet Fluoxetine NDC 0 20 MG Orally Once a day Active 1 capsule Metoprolol Tartrate ND 83262858582 25 MG Orally Twice a day Active 1 tablet with food Vital Signs Date/Time: Jul 14, 2018 BMI 39.11 Index Weight 200.3 lbs Height 60 in Temperature 98.4 F Cardiac Monitoring Heart Rate 100 /min Blood Pressure Diastolic 72 mm Hg Blood Pressure Systolic 150 mm Hg Results No Known Results Summary Purpose [employer] Submission
--- OUTSIDE RECORDS SUMMARY | 2018-12-28 09:26 | XMS REPORT ---
Author Author Fortino Ritchie [facility] [employer] Address Unknown Phone Unavailable Care Team Providers Care Literacy Coordinator Name Role Phone Fortino Ritchie Unavailable Allergies, Adverse Reactions, Alerts Substance Reaction [...] Problem Sciatica, right side M54.31 Active Assessment Sciatica of left side M54.32 Active Assessment Left knee pain M25.562 Active Assessment Low back pain M54.5 Active Assessment Sciatica, right side M54.31 Active Assessment Declined smoking cessation Z72.0 Active Assessment Encounter for long-term (current) use of other medications Z79.899 Active Assessment Age related osteoporosis M81.0 Active Medications Medication Code System Code Instructions Start Date End Date Status Dosage Benicar ND 20069026400 20 MG Orally once a day Active 1 tablet Alprazolam ND 12350732418 0.5 MG Orally once at night Active 1 tablet Metoprolol Tartrate ND 81095095184 25 MG Orally Twice a day Active 1 tablet with food Prolia ND 47043015282 60 MG/ML Subcutaneous every 6 months Active as directed Vitamin D (Ergocalciferol) ND 80459023740 35608 UNIT Orally once a week Dec 27, 2016 Active 1 capsule Vital Signs Date/Time: January 10, 2018 BMI 38.86 Index Weight 199 lbs Height 60 in Temperature 97.9 F Cardiac Monitoring Heart Rate 64 /min Blood Pressure Diastolic 70 mm Hg Blood Pressure Systolic 122 mm Hg Results No Known Results Summary Purpose [employer] Submission
[2018-12-28] MEDS ORDERED: KETOROLAC TROMETHAMINE 30 MG/ML VIAL IV NR (10:00)
[2018-12-28 10:20] LABS: BASOPHILS # (AUTO) 0.1 (0.0-0.1); BASOPHILS % 1.2 % (0.0-1.0); EOSINOPHILS # (AUTO) 0.1 (0.0-0.4); EOSINOPHILS % 2.2 % (0.0-6.0); HEMATOCRIT 39.6 % (34.2-44.1); HEMOGLOBIN 13.6 g/dL (12.0-16.0); LYMPHOCYTES # (AUTO) 1.7 (1.0-3.2); LYMPHOCYTES % 27.6 % (18.0-39.1); MEAN CORPUSCULAR HEMOGLOBIN 29.8 pg (28-32); MEAN CORPUSCULAR HGB CONC 34.3 g/dL (31-35); MEAN CORPUSCULAR VOLUME 86.8 fL (81-99); MONOCYTES # (AUTO) 0.4 (0.2-0.8); MONOCYTES % 6.5 % (4.4-11.3); NEUTROPHILS # (AUTO) 3.8 (2.1-6.9); NEUTROPHILS % 62.3 % (38.7-80.0); PLATELET COUNT 163 x10e3/uL (140-360); RED BLOOD COUNT 4.56 x10e6/uL (3.6-5.1); RED CELL DISTRIBUTION WIDTH 13.6 % (11.7-14.4)
[2018-12-28 10:30] LABS: INR 0.95; PROTHROMBIN TIME 13.6 seconds (11.9-14.5)
[2018-12-28 10:31] LABS: PARTIAL THROMBOPLASTIN TIME 35.5 seconds (23.8-35.5)
[2018-12-28 10:39] LABS: ANION GAP 13.8 mmol/L (8-16); CALCIUM 9.6 mg/dL (8.4-10.2); CREATININE, SERUM 0.93 mg/dL (0.57-1.11); POTASSIUM 3.8 mmol/L (3.5-5.1)
[2018-12-28 10:46] LABS: CREATINE KINASE MB 1.7 ng/mL (0-5.0)
[2018-12-28 11:12] LABS: BACTERIA,URINE MANY /HPF; BILIRUBIN,URINE NEGATIVE (NEGATIVE); CLARITY,URINE HAZY (CLEAR); COLOR,URINE YELLOW (YELLOW); KETONES,URINE NEGATIVE (NEGATIVE); LEUKOCYTE ESTERASE ,URINE TRACE (NEGATIVE); NITRITE,URINE NEGATIVE (NEGATIVE); PROTEIN,URINE DIPSTICK NEGATIVE (NEGATIVE); URINE UROBILINOGEN 0.2 mg/dL (0.2 - 1); WBC,URINE (MAN) 0-5 /HPF (0-5)
[2018-12-28 11:13] LABS: EPITHELIAL CELLS,URINE MODERATE /LPF
[2018-12-28 11:54] VITALS: BP 142/70
--- NOTE | 2018-12-28 12:21 | Diagnostic Imaging Report ---
EXAMINATION: CHEST 2 VIEWS INDICATION: Chest pain. COMPARISON: Chest radiograph 05/26/2018. FINDINGS: Exam is somewhat limited by patient rotation. TUBES and LINES: None. LUNGS: Moderate inflation of lungs. No evidence of pneumonia or pulmonary edema. PLEURA: No pleural effusion or pneumothorax. HEART AND MEDIASTINUM: Cardiomediastinal silhouette is unremarkable. Atherosclerotic calcifications of the aortic arch. BONES AND SOFT TISSUES: No acute osseous abnormality. UPPER ABDOMEN: No free air under the diaphragm. Surgical clips in the upper abdomen. IMPRESSION: No acute radiographic abnormality. Signed by: Dr. Alicia Graff MD on 12/28/2018 12:18 PM
== END 2018-12-28 11:57 | disposition home or self-care (01) ==
LOC: ER 09:22
DX: R09.1 Pleurisy (principal); J15.9 Unspecified bacterial pneumonia; I10 Essential (primary) hypertension
CPT/HCPCS: 36415; 71046; 80048; 81001; 82550; 82553; 83880; 84484; 85025; 85379; 85610; 85730; 87086; 93005; 99284; J1885

== ENCOUNTER 2021-11-27 07:41 | Emergency (ER) | payer MEDICARE, OTHER ==
[~2021-11-27] VITALS: Ht 165.1 cm; Wt 86.2 kg
[~2021-11-27 07:41] MED LIST changes: +AZO URINARY P99.5 MG PO; +CEPHALEXIN500 MG PO
[2021-11-27] MEDS ORDERED: PREDNISONE 20 MG TAB PO ONE (08:00)
[2021-11-27] MEDS ORDERED: KETOROLAC TROMETHAMINE 30 MG/ML VIAL IM ONE (08:00)
== END 2021-11-27 09:48 | disposition home or self-care (01) ==
LOC: ER 08:48
DX: M54.42 Lumbago with sciatica, left side (principal); I10 Essential (primary) hypertension; E11.9 Type 2 diabetes mellitus without complications; E78.5 Hyperlipidemia, unspecified; K21.9 Gastro-esophageal reflux disease without esophagitis
CPT/HCPCS: 73610; 73630; 99283; J1885; J7512

== ENCOUNTER 2022-03-13 07:32 | Emergency (ER) | payer MEDICARE ==
[~2022-03-13] VITALS: Ht 165.1 cm; Wt 86.2 kg
[2022-03-13 08:11] LABS: BASOPHILS # (AUTO) 0.1 (0.0-0.1); BASOPHILS % 1.9 % (0.0-1.0); EOSINOPHILS # (AUTO) 0.2 (0.0-0.4); EOSINOPHILS % 2.8 % (0.0-6.0); HEMATOCRIT 37.9 % (34.2-44.1); HEMOGLOBIN 12.2 g/dL (12.0-16.0); LYMPHOCYTES # (AUTO) 1.4 (1.0-3.2); LYMPHOCYTES % 27.3 % (18.0-39.1); MEAN CORPUSCULAR HEMOGLOBIN 27.4 pg (28-32); MEAN CORPUSCULAR HGB CONC 32.2 g/dL (31-35); MONOCYTES # (AUTO) 0.5 (0.2-0.8); MONOCYTES % 9.3 % (4.4-11.3); NEUTROPHILS # (AUTO) 3.1 (2.1-6.9); NEUTROPHILS % 58.5 % (38.7-80.0); PLATELET COUNT 186 x10e3/uL (140-360); RED BLOOD COUNT 4.46 x10e6/uL (3.6-5.1)
[2022-03-13 08:15] LABS: CLARITY,URINE CLEAR (CLEAR); COLOR,URINE YELLOW (YELLOW); KETONES,URINE NEGATIVE (NEGATIVE); LEUKOCYTE ESTERASE ,URINE NEGATIVE (NEGATIVE); NITRITE,URINE NEGATIVE (NEGATIVE); PROTEIN,URINE DIPSTICK 1+ (NEGATIVE)
[2022-03-13 08:16] LABS: URINE UROBILINOGEN 1 mg/dL (0.2 - 1)
[2022-03-13] MEDS ORDERED: DIATRIZOATE MEGL/DIATRIZOA SOD 30 ML BTL PO ONE (08:20)
[2022-03-13 08:24] LABS: BACTERIA,URINE FEW /HPF; EPITHELIAL CELLS,URINE MODERATE /LPF; RBC,URINE 0-5 /HPF (0-5); WBC,URINE (MAN) 0-5 /HPF (0-5)
[2022-03-13] MEDS ORDERED: ULTRAM50 MG PO (08:24)
[2022-03-13] MEDS ORDERED: AMLODIPINE BESYL5 MG PO (08:24)
[2022-03-13] MEDS ORDERED: PROTONIX20 MG PO (08:24)
[2022-03-13] MEDS ORDERED: VASOTEC10 M1 PO (08:24)
[2022-03-13 08:35] LABS: ALBUMIN 3.8 g/dL (3.5-5.0); ALBUMIN/GLOBULIN RATIO 0.9 (0.8-2.0); CALCIUM 9.3 mg/dL (8.4-10.2); CREATININE, SERUM 0.86 mg/dL (0.57-1.11)
== END 2022-03-13 10:30 | disposition home or self-care (01) ==
LOC: ER 07:42
DX: R10.13 Epigastric pain (principal); E11.65 Type 2 diabetes mellitus with hyperglycemia; I10 Essential (primary) hypertension; E78.5 Hyperlipidemia, unspecified; K21.9 Gastro-esophageal reflux disease without esophagitis
CPT/HCPCS: 36415; 71045; 74176; 80053; 81001; 83690; 84484; 85025; 93005; 99284

== ENCOUNTER 2022-05-08 21:37 | Emergency (ER) | payer MEDICARE ==
[~2022-05-08] VITALS: Ht 165.1 cm; Wt 78.9 kg
[~2022-05-08 21:37] MED LIST changes: +AMLODIPINE BESYL5 MG PO; +PROTONIX20 MG PO; +ULTRAM50 MG PO; +VASOTEC10 M1 PO
[2022-05-08] MEDS ORDERED: ONDANSETRON HCL INJ 2MG/ML 2ML 2 MG/ML VIAL IV STA (21:53)
[2022-05-08] MEDS ORDERED: Morphine 4mg INJECTION 4 MG/ML INJ IV ONE (22:00)
[2022-05-08 22:05] LABS: BASOPHILS # (AUTO) 0.1 (0.0-0.1); BASOPHILS % 1.2 % (0.0-1.0); EOSINOPHILS # (AUTO) 0.2 (0.0-0.4); EOSINOPHILS % 3.1 % (0.0-6.0); HEMATOCRIT 37.2 % (34.2-44.1); LYMPHOCYTES # (AUTO) 2.7 (1.0-3.2); LYMPHOCYTES % 35.7 % (18.0-39.1); MEAN CORPUSCULAR HEMOGLOBIN 28.1 pg (28-32); MEAN CORPUSCULAR HGB CONC 32.3 g/dL (31-35); MEAN CORPUSCULAR VOLUME 87.1 fL (81-99); MONOCYTES # (AUTO) 0.5 (0.2-0.8); MONOCYTES % 6.9 % (4.4-11.3); NEUTROPHILS % 52.7 % (38.7-80.0); PLATELET COUNT 186 x10e3/uL (140-360); RED BLOOD COUNT 4.27 x10e6/uL (3.6-5.1); RED CELL DISTRIBUTION WIDTH 15.4 % (11.7-14.4)
[2022-05-08 22:07] LABS: CLARITY,URINE CLEAR (CLEAR); COLOR,URINE YELLOW (YELLOW); KETONES,URINE NEGATIVE (NEGATIVE); LEUKOCYTE ESTERASE ,URINE TRACE (NEGATIVE); NITRITE,URINE NEGATIVE (NEGATIVE); PROTEIN,URINE DIPSTICK NEGATIVE (NEGATIVE); URINE UROBILINOGEN 0.2 mg/dL (0.2 - 1)
[2022-05-08] MEDS ORDERED: DIATRIZOATE MEGL/DIATRIZOA SOD 30 ML BTL PO ONE (22:11)
[2022-05-08 22:16] LABS: BACTERIA,URINE MODERATE /HPF; EPITHELIAL CELLS,URINE MODERATE /LPF; WBC,URINE (MAN) 0-5 /HPF (0-5)
[2022-05-08 22:21] LABS: ALBUMIN 3.6 g/dL (3.5-5.0); ALBUMIN/GLOBULIN RATIO 0.8 (0.8-2.0); CALCIUM 9.3 mg/dL (8.4-10.2); CREATININE, SERUM 0.8 mg/dL (0.57-1.11)
[2022-05-09] MEDS ORDERED: NEOMYCIN/POLYMYXIN/BACITRACIN 15 GM TUBE TOP ONE (00:15)
[2022-05-09] MEDS ORDERED: NEOMYCIN/POLYMYX/BACITR OINT 0.9 GM PKT ONE (00:23)
[2022-05-09 00:29] VITALS: BP 114/72
== END 2022-05-09 00:34 | disposition home or self-care (01) ==
LOC: ER 21:51
DX: R10.13 Epigastric pain (principal); S30.811A Abrasion of abdominal wall, initial encounter; E11.65 Type 2 diabetes mellitus with hyperglycemia; I10 Essential (primary) hypertension; E78.5 Hyperlipidemia, unspecified; K21.9 Gastro-esophageal reflux disease without esophagitis; F17.210 Nicotine dependence, cigarettes, uncomplicated
CPT/HCPCS: 36415; 74176; 80053; 81001; 83690; 85025; 94760; 99284; J2405; U0002

== ENCOUNTER 2022-11-25 10:20 | Emergency (ER) | payer MEDICARE ==
[~2022-11-25] VITALS: Ht 165.1 cm; Wt 78.9 kg
[2022-11-25] MEDS ORDERED: OFLOXACIN5 ML LEFT EAR (10:38)
[2022-11-25] MEDS ORDERED: CEFDINIR300 MG PO (10:38)
== END 2022-11-25 10:45 | disposition home or self-care (01) ==
LOC: ER 10:25
DX: H66.92 Otitis media, unspecified, left ear (principal); H72.92 Unspecified perforation of tympanic membrane, left ear; I10 Essential (primary) hypertension; E11.9 Type 2 diabetes mellitus without complications; K21.9 Gastro-esophageal reflux disease without esophagitis; Z88.0 Allergy status to penicillin; Z88.6 Allergy status to analgesic agent; Z91.041 Radiographic dye allergy status
CPT/HCPCS: 99282

== ENCOUNTER 2023-02-12 11:01 | Emergency (ER) | payer MEDICARE, OTHER ==
[~2023-02-12] VITALS: Ht 165.1 cm; Wt 78.9 kg
[~2023-02-12 11:01] MED LIST changes: +CEFDINIR300 MG PO; +OFLOXACIN5 ML LEFT EAR
[2023-02-12] MEDS ORDERED: FAMOTIDINE 20 MG/2 ML VIAL IV STA (11:05)
[2023-02-12] MEDS ORDERED: DONNATAL/LIDOCAINE/MAALOX 30 ML SUSP PO ONE (11:15)
[2023-02-12 11:48] LABS: BASOPHILS # (AUTO) 0.1 (0.0-0.1); EOSINOPHILS # (AUTO) 0.1 (0.0-0.4); HEMATOCRIT 36.1 % (34.2-44.1); HEMOGLOBIN 11.6 g/dL (12.0-16.0); LYMPHOCYTES # (AUTO) 1.6 (1.0-3.2); LYMPHOCYTES % 31.2 % (18.0-39.1); MEAN CORPUSCULAR HEMOGLOBIN 26.9 pg (28-32); MEAN CORPUSCULAR HGB CONC 32.1 g/dL (31-35); MEAN CORPUSCULAR VOLUME 83.8 fL (81-99); MONOCYTES # (AUTO) 0.4 (0.2-0.8); MONOCYTES % 7.7 % (4.4-11.3); NEUTROPHILS % 57.9 % (38.7-80.0); PLATELET COUNT 173 x10e3/uL (140-360); RED BLOOD COUNT 4.31 x10e6/uL (3.6-5.1); RED CELL DISTRIBUTION WIDTH 14.7 % (11.7-14.4)
[2023-02-12 12:02] LABS: CLARITY,URINE CLEAR (CLEAR); COLOR,URINE YELLOW (YELLOW); KETONES,URINE NEGATIVE (NEGATIVE); LEUKOCYTE ESTERASE ,URINE TRACE (NEGATIVE); NITRITE,URINE NEGATIVE (NEGATIVE); PROTEIN,URINE DIPSTICK NEGATIVE (NEGATIVE); URINE UROBILINOGEN 0.2 mg/dL (0.2 - 1)
[2023-02-12] MEDS ORDERED: ONDANSETRON HCL INJ 2MG/ML 2ML 2 MG/ML VIAL IV STA (12:02)
[2023-02-12] MEDS ORDERED: ONDANSETRON HCL INJ 2MG/ML 2ML 2 MG/ML VIAL ONE (12:03)
[2023-02-12] MEDS ORDERED: LIDOCAINE VISC 2% SOLN 15 ML UDC ONE (12:04)
[2023-02-12] MEDS ORDERED: BELLADONNA ALK/PHENOBARBITAL 5 ML UDC ONE (12:08)
[2023-02-12 12:12] LABS: ALBUMIN 3.8 g/dL (3.5-5.0); ALBUMIN/GLOBULIN RATIO 0.8 (0.8-2.0); ANION GAP 17.6 mmol/L (8-16); CALCIUM 9.3 mg/dL (8.4-10.2); CREATININE, SERUM 0.78 mg/dL (0.57-1.11); POTASSIUM 3.6 mmol/L (3.5-5.1)
[2023-02-12] MEDS ORDERED: LIDOCAINE VISC 2% SOLN 15 ML UDC PO ONE (12:15)
[2023-02-12] MEDS ORDERED: BELLADONNA ALK/PHENOBARBITAL 5 ML UDC PO ONE (12:15)
[2023-02-12] MEDS ORDERED: MAGNESIUM/ALUMINUM/SIMETHICONE 30 ML UDC PO ONE (12:15)
[2023-02-12 12:20] LABS: BACTERIA,URINE RARE /HPF; EPITHELIAL CELLS,URINE FEW /LPF; RBC,URINE 0-5 /HPF (0-5); WBC,URINE (MAN) 0-5 /HPF (0-5)
[2023-02-12] MEDS ORDERED: CARAFATE1 GM PO (15:19)
== END 2023-02-12 16:10 | disposition home or self-care (01) ==
LOC: ER 11:04
DX: R10.13 Epigastric pain (principal); R11.2 Nausea with vomiting, unspecified; E11.65 Type 2 diabetes mellitus with hyperglycemia; I10 Essential (primary) hypertension; E78.5 Hyperlipidemia, unspecified; K21.9 Gastro-esophageal reflux disease without esophagitis
CPT/HCPCS: 36415; 71046; 74176; 80053; 81001; 83690; 84484; 85025; 93005; 99284; J2405

== ENCOUNTER → 2023-04-16 | Outpatient (CLI) | payer MEDICARE ==
[~2023-04-16] MED LIST changes: +CARAFATE1 GM PO
== END ==
LOC: US 07:18
PROVIDERS: ATTEND Internal Medicine
DX: M54.50 Low back pain, unspecified (principal); M25.552 Pain in left hip; M25.562 Pain in left knee; R94.5 Abnormal results of liver function studies
CPT/HCPCS: 71250; 72070; 72110; 73522; 76705

== ENCOUNTER 2024-03-16 08:33 | Emergency (ER) | payer MEDICARE ==
[~2024-03-16] VITALS: Ht 154.9 cm; Wt 76.7 kg
[2024-03-16 09:06] LABS: BASOPHILS # (AUTO) 0.1 (0.0-0.1); BASOPHILS % 1.1 % (0.0-1.0); EOSINOPHILS # (AUTO) 0.2 (0.0-0.4); EOSINOPHILS % 3.8 % (0.0-6.0); HEMATOCRIT 38.4 % (34.2-44.1); HEMOGLOBIN 13.5 g/dL (12.0-16.0); LYMPHOCYTES # (AUTO) 1.8 (1.0-3.2); LYMPHOCYTES % 29.7 % (18.0-39.1); MEAN CORPUSCULAR HEMOGLOBIN 30.3 pg (28-32); MEAN CORPUSCULAR HGB CONC 35.2 g/dL (31-35); MEAN CORPUSCULAR VOLUME 86.3 fL (81-99); MONOCYTES # (AUTO) 0.5 (0.2-0.8); MONOCYTES % 7.6 % (4.4-11.3); NEUTROPHILS # (AUTO) 3.5 (2.1-6.9); NEUTROPHILS % 57.5 % (38.7-80.0); PLATELET COUNT 170 x10e3/uL (140-360); RED BLOOD COUNT 4.45 x10e6/uL (3.6-5.1); RED CELL DISTRIBUTION WIDTH 13.6 % (11.7-14.4); WHITE BLOOD COUNT 6.09 x10e3/uL (4.8-10.8)
[2024-03-16] MEDS: SODIUM CHLORIDE 0.9% 1000ML 1,000 ML IV STA (09:10)
[2024-03-16] MEDS: ONDANSETRON HCL INJ 2MG/ML 2ML 2 MG/ML VIAL IV STA (09:11)
[2024-03-16] MEDS: KETOROLAC TROMETHAMINE 30 MG/ML VIAL IV STA (09:12)
[2024-03-16 09:24] LABS: INR 0.95; PROTHROMBIN TIME 13.4 seconds (11.9-14.5)
[2024-03-16 09:25] LABS: PARTIAL THROMBOPLASTIN TIME 29.3 seconds (23.8-35.5)
[2024-03-16 09:27] LABS: ALBUMIN 3.6 g/dL (3.5-5.0); ALBUMIN/GLOBULIN RATIO 0.8 (0.8-2.0); ANION GAP 16.1 mmol/L (8-16); BILIRUBIN,TOTAL 0.7 mg/dL (0.2-1.2); CREATININE, SERUM 0.8 mg/dL (0.57-1.11); MAGNESIUM 1.8 MG/DL (1.3-2.1); POTASSIUM 4.1 mmol/L (3.5-5.1); TOTAL PROTEIN 8.1 g/dL (6.5-8.1)
[2024-03-16 09:33] LABS: TROPONIN I 0.01 ng/mL (0-0.300)
[2024-03-16 09:34] LABS: BILIRUBIN,URINE NEGATIVE (NEGATIVE); CLARITY,URINE CLEAR (CLEAR); COLOR,URINE YELLOW (YELLOW); GLUCOSE, URINE NEGATIVE (NEGATIVE); KETONES,URINE NEGATIVE (NEGATIVE); LEUKOCYTE ESTERASE ,URINE TRACE (NEGATIVE); NITRITE,URINE NEGATIVE (NEGATIVE); PH,URINE 6.5 (5 - 7); PROTEIN,URINE DIPSTICK TRACE (NEGATIVE); URINE UROBILINOGEN 1 mg/dL (0.2 - 1)
[2024-03-16 10:01] LABS: BACTERIA,URINE MANY /HPF; EPITHELIAL CELLS,URINE FEW /LPF; RBC,URINE 0-5 /HPF (0-5); WBC,URINE (MAN) 0-5 /HPF (0-5)
[2024-03-16] MEDS ORDERED: DICYCLOMINE HCL20 MG PO (11:03)
[2024-03-16 11:12] VITALS: O2SAT 100
== END 2024-03-16 11:15 | disposition home or self-care (01) ==
LOC: ER 08:36
DX: R10.30 Lower abdominal pain, unspecified (principal); M54.50 Low back pain, unspecified; G89.29 Other chronic pain; I10 Essential (primary) hypertension; E78.5 Hyperlipidemia, unspecified; K21.9 Gastro-esophageal reflux disease without esophagitis; Z87.442 Personal history of urinary calculi; K57.30 Diverticulosis of large intestine without perforation or abscess without bleeding; M41.80 Other forms of scoliosis, site unspecified
CPT/HCPCS: 36415; 72131; 74176; 80053; 81001; 82550; 83690; 83735; 84484; 85025; 85610; 85730; 87086; 93005; 99284; C9113; J1885; J2405; J7030

== ENCOUNTER 2024-05-08 08:29 | Emergency (ER) | payer MEDICARE ==
[~2024-05-08] VITALS: Ht 154.9 cm; Wt 76.7 kg
[~2024-05-08 08:29] MED LIST changes: +DICYCLOMINE HCL20 MG PO
[2024-05-08 08:35] VITALS: TEMP 97.9
[2024-05-08 08:55] LABS: BASOPHILS # (AUTO) 0.1 (0.0-0.1); BASOPHILS % 1.4 % (0.0-1.0); EOSINOPHILS # (AUTO) 0.2 (0.0-0.4); HEMOGLOBIN 14.3 g/dL (12.0-16.0); LYMPHOCYTES # (AUTO) 2.1 (1.0-3.2); LYMPHOCYTES % 27.7 % (18.0-39.1); MEAN CORPUSCULAR HEMOGLOBIN 30.2 pg (28-32); MEAN CORPUSCULAR VOLUME 88.8 fL (81-99); MONOCYTES # (AUTO) 0.5 (0.2-0.8); MONOCYTES % 6.9 % (4.4-11.3); NEUTROPHILS # (AUTO) 4.7 (2.1-6.9); NEUTROPHILS % 61.9 % (38.7-80.0); PLATELET COUNT 206 x10e3/uL (140-360); RED BLOOD COUNT 4.73 x10e6/uL (3.6-5.1); RED CELL DISTRIBUTION WIDTH 14.2 % (11.7-14.4); WHITE BLOOD COUNT 7.66 x10e3/uL (4.8-10.8)
[2024-05-08 09:05] LABS: INR 0.94; PROTHROMBIN TIME 13.3 seconds (11.9-14.5)
[2024-05-08 09:06] LABS: PARTIAL THROMBOPLASTIN TIME 30.1 seconds (23.8-35.5)
[2024-05-08 09:14] LABS: ALANINE AMINOTRANSFERASE 24 IU/L (0-55); ALBUMIN/GLOBULIN RATIO 1.1 (0.8-2.0); ALKALINE PHOSPHATASE 86 IU/L (40-150); ANION GAP 18.7 mmol/L (8-16); BLOOD UREA NITROGEN 14 mg/dL (7-26); BUN/CREATININE RATIO 15 (6-25); CALCIUM 9.3 mg/dL (8.4-10.2); CARBON DIOXIDE 22 mmol/L (22-29); CHLORIDE 103 mmol/L (98-107); CREATINE KINASE 31 IU/L (29-168); CREATININE, SERUM 0.92 mg/dL (0.57-1.11); EST GLOMERULAR FILTRATION RATE 65 ML/MIN (>=60); GLUCOSE 167 mg/dL (74-118); MAGNESIUM 1.6 MG/DL (1.3-2.1); POTASSIUM 3.7 mmol/L (3.5-5.1); SODIUM 140 mmol/L (136-145); TOTAL PROTEIN 7.7 g/dL (6.5-8.1)
[2024-05-08 09:20] LABS: TROPONIN I < 0.001 ng/mL (0-0.300)
[2024-05-08] MEDS: ACETAMINOPHEN 325 MG TAB PO ONE (09:21)
[2024-05-08] MEDS: DIAZEPAM INJ 5 MG/ML 2 ML IV ONE (09:21)
[2024-05-08] MEDS: SODIUM CHLORIDE 0.9% 500ML 500 ML IV ONE (09:21)
[2024-05-08 09:27] VITALS: RESP 17
[2024-05-08 09:35] VITALS: PULSE 59
[2024-05-08 12:48] VITALS: BP 154/80; PULSE 55; RESP 18; O2SAT 95
== END 2024-05-08 12:55 | disposition other institution (70) ==
LOC: ER 08:34
DX: G25.2 Other specified forms of tremor (principal); R07.9 Chest pain, unspecified; R29.6 Repeated falls; I10 Essential (primary) hypertension; M19.90 Unspecified osteoarthritis, unspecified site; Z91.041 Radiographic dye allergy status; Z88.5 Allergy status to narcotic agent; Z88.0 Allergy status to penicillin; Z79.899 Other long term (current) drug therapy; Z11.52 Encounter for screening for COVID-19
CPT/HCPCS: 36415; 70450; 71045; 72125; 80053; 82550; 83735; 83880; 84443; 84484; 85025; 85610; 85730; 87400; 87420; 93005; 99284; J3360; J7040; U0002

== ENCOUNTER 2025-07-08 10:03 | Emergency (ER) | payer MEDICARE ==
[~2025-07-08] VITALS: Ht 154.9 cm; Wt 76.7 kg
[~2025-07-08 10:03] MED LIST changes: +METFORMIN HCL500 MG PO
[2025-07-08 10:32] VITALS: TEMP 98.6
[2025-07-08 11:31] LABS: BASOPHILS % 1.2 % (0.0-1.0); EOSINOPHILS % 3.5 % (0.0-6.0); LYMPHOCYTES % 32.7 % (18.0-39.1); MONOCYTES % 8.3 % (4.4-11.3); NEUTROPHILS % 54.1 % (38.7-80.0); RED CELL DISTRIBUTION WIDTH 14.3 % (11.7-14.4)
[2025-07-08 11:51] LABS: INR 1.04
[2025-07-08 12:02] LABS: EST GLOMERULAR FILTRATION RATE 73.0 ML/MIN (>=60)
[2025-07-08 12:40] VITALS: PULSE 51; RESP 22; O2SAT 98
== END 2025-07-08 12:45 | disposition home or self-care (01) ==
LOC: ER 10:46
DX: R06.02 Shortness of breath (principal); R07.9 Chest pain, unspecified; I10 Essential (primary) hypertension; E78.5 Hyperlipidemia, unspecified; K21.9 Gastro-esophageal reflux disease without esophagitis; F41.9 Anxiety disorder, unspecified; M19.09 Primary osteoarthritis, other specified site; Z87.442 Personal history of urinary calculi; F17.210 Nicotine dependence, cigarettes, uncomplicated
CPT/HCPCS: 36415; 71045; 80053; 83735; 83880; 84484; 85025; 85610; 85730; 93005; 99284